=== PATIENT | male | born 1960 | race Caucasian/White ===

== ENCOUNTER → 2016-04-24 | Outpatient (CLI) | payer OTHER | LOC: LAB 12:50 | DX: D75.1 Secondary polycythemia (principal) ==

== ENCOUNTER → 2016-05-01 | Outpatient (CLI) | payer OTHER | LOC: LAB 13:08 | DX: D75.1 Secondary polycythemia (principal) ==

== ENCOUNTER → 2020-10-24 | Outpatient (CLI) | payer OTHER | LOC: RAD 09:00 | DX: R06.00 Dyspnea, unspecified (principal); R91.8 Other nonspecific abnormal finding of lung field ==

== ENCOUNTER → 2022-04-20 | Outpatient (CLI) | payer OTHER ==
[2022-04-20 08:00] LABS: BASO # 0.08 K/mm3 (0.02-0.10); EOS # 1.16 K/mm3 (0.04-0.40); EOS % 8.4 % (0.0-4.0); HEMATOCRIT 51.6 % (42.0-52.0); HEMOGLOBIN 16.9 g/dL (13.5-18.0); MEAN CELL VOLUME 89 fl (78-100); MEAN CORPUSCULAR HEMOGLOBIN 29 pg (27-31); MEAN CORPUSCULAR HGB CONC 33 g/dL (33-37); MONO # 0.95 K/mm3 (0.20-0.80); NEU # 7.17 K/mm3 (1.40-6.50); PLATELET COUNT 296 K/mm3 (130-400); RED BLOOD COUNT 5.79 M/mm3 (4.20-5.60); RED CELL DISTRIBUTION WIDTH 14.7 % (11.5-14.5); WHITE BLOOD COUNT 13.8 K/mm3 (4.8-10.8)
[2022-04-20 08:05] LABS: ALBUMIN 4.4 g/dL (3.4-4.8)
[2022-04-20 08:06] LABS: POTASSIUM 4.6 mmol/L (3.5-5.1)
[2022-04-20 08:07] LABS: CALCIUM 10.5 mg/dL (8.3-10.5)
[2022-04-20 08:08] LABS: TOTAL PROTEIN 7.4 g/dL (6.2-8.1)
[2022-04-20 08:10] LABS: TOTAL BILIRUBIN 0.3 mg/dL (0.2-1.2)
== END ==
LOC: LAB 07:46
PROVIDERS: Family Medicine
DX: Z00.01 Encounter for general adult medical examination with abnormal findings (principal)

== ENCOUNTER → 2022-11-27 | Outpatient (CLI) | payer OTHER ==
[2022-11-27 07:05] LABS: ALBUMIN 4.1 g/dL (3.4-4.8)
[2022-11-27 07:06] LABS: CALCIUM 9.2 mg/dL (8.3-10.5)
[2022-11-27 07:07] LABS: TOTAL PROTEIN 6.9 g/dL (6.2-8.1)
[2022-11-27 07:09] LABS: TOTAL BILIRUBIN 0.4 mg/dL (0.2-1.2)
== END ==
LOC: LAB 06:45
PROVIDERS: Family Medicine
DX: E11.65 Type 2 diabetes mellitus with hyperglycemia (principal)

== ENCOUNTER → 2023-04-04 | Outpatient (CLI) | payer OTHER ==
[2023-04-04 07:26] LABS: BASO # 0.06 K/mm3 (0.02-0.10); EOS # 0.84 K/mm3 (0.04-0.40); EOS % 8.4 % (0.0-4.0); HEMATOCRIT 54.6 % (42.0-52.0); HEMOGLOBIN 18.3 g/dL (13.5-18.0); LYMPH# 2.85 K/mm3 (1.50-4.00); MEAN CELL VOLUME 88 fl (78-100); MEAN CORPUSCULAR HEMOGLOBIN 30 pg (27-31); MEAN CORPUSCULAR HGB CONC 34 g/dL (33-37); MEAN PLATELET VOLUME 8.4 fl (7.4-10.4); NEU # 5.63 K/mm3 (1.40-6.50); PLATELET COUNT 279 K/mm3 (130-400); RED BLOOD COUNT 6.18 M/mm3 (4.20-5.60); RED CELL DISTRIBUTION WIDTH 16.3 % (11.5-14.5)
[2023-04-04 07:30] LABS: ALBUMIN 4.3 g/dL (3.4-4.8)
[2023-04-04 07:32] LABS: CALCIUM 9.8 mg/dL (8.3-10.5)
[2023-04-04 07:33] LABS: TOTAL PROTEIN 7.1 g/dL (6.2-8.1)
[2023-04-04 07:35] LABS: TOTAL BILIRUBIN 0.5 mg/dL (0.2-1.2)
== END ==
LOC: LAB 07:08
PROVIDERS: Internal Medicine
DX: D72.10 Eosinophilia, unspecified (principal)

== ENCOUNTER → 2023-04-18 | Outpatient (CLI) | payer OTHER ==
[2023-04-18 14:45] LABS: HEMATOCRIT 52.6 % (42.0-52.0); HEMOGLOBIN 17.3 g/dL (13.5-18.0)
== END ==
LOC: LAB 14:26
PROVIDERS: Nurse Practitioner
DX: D75.1 Secondary polycythemia (principal); D72.10 Eosinophilia, unspecified

== ENCOUNTER → 2023-08-09 | Outpatient (CLI) | payer OTHER ==
[2023-08-09 08:16] LABS: ALBUMIN 4.2 g/dL (3.4-4.8)
[2023-08-09 08:17] LABS: CALCIUM 9.4 mg/dL (8.3-10.5)
[2023-08-09 08:19] LABS: TOTAL PROTEIN 6.9 g/dL (6.2-8.1)
[2023-08-09 08:20] LABS: TOTAL BILIRUBIN 0.2 mg/dL (0.2-1.2)
[2023-08-09 09:25] LABS: BASO # 0.06 K/mm3 (0.02-0.10); EOS # 0.46 K/mm3 (0.04-0.40); EOS % 3.2 % (0.0-4.0); HEMOGLOBIN 17.3 g/dL (13.5-18.0); LYMPH# 4.95 K/mm3 (1.50-4.00); MEAN CELL VOLUME 87 fl (78-100); MEAN CORPUSCULAR HEMOGLOBIN 29 pg (27-31); MEAN CORPUSCULAR HGB CONC 33 g/dL (33-37); MEAN PLATELET VOLUME 9.1 fl (7.4-10.4); MONO # 1.05 K/mm3 (0.20-0.80); NEU # 7.83 K/mm3 (1.40-6.50); PLATELET COUNT 344 K/mm3 (130-400); RED BLOOD COUNT 5.95 M/mm3 (4.20-5.60); RED CELL DISTRIBUTION WIDTH 15.3 % (11.5-14.5); WHITE BLOOD COUNT 14.4 K/mm3 (4.8-10.8)
== END ==
LOC: LAB 07:55
PROVIDERS: Nurse Practitioner
DX: D72.10 Eosinophilia, unspecified (principal)